=== PATIENT | female | born 2005 | race Caucasian/White ===

== ENCOUNTER 2024-06-14 09:42 | Outpatient (CLI) | payer MEDICAID ==
--- NOTE | 2024-06-14 17:57 | XRAY Report ---
PROCEDURE: Foot 3+V LT INDICATIONS: CONTUSION OF LEFT FOOT TECHNIQUE: 3 views of the foot were acquired. COMPARISON: None. FINDINGS: Bones: No fractures or dislocations. No suspicious bony lesions. Soft tissues: No tibiotalar joint effusion. Achilles tendon appears normal. IMPRESSION: No displaced fractures are seen on these plain films. Reviewed by: Abdelrahman Evans MD on 06/14/2024 4:56 PM [email or web address] Approved by: Abdelrahman Evans MD on 06/14/2024 4:56 PM AKDT Station ID: [id number]
== END 2024-06-14 23:59 | disposition home or self-care (01) ==
LOC: DI.N 09:42
PROVIDERS: ATTEND Physician Assistant
DX: S90.32XA Contusion of left foot, initial encounter (principal)